=== PATIENT | male | born 1960 | race Two or more races ===

== ENCOUNTER 2018-10-22 09:18 | Day surgery (SDC) | payer OTHER ==
[2018-10-23] MEDS ORDERED: COZAAR50 MG (15:22)
== END 2018-10-22 13:10 | disposition home or self-care (01) ==
LOC: AMB-ENDOS 09:18
DX: D12.2 Benign neoplasm of ascending colon (principal)

== ENCOUNTER 2018-10-23 15:18 | Inpatient (IN) | payer OTHER ==
[~2018-10-23] VITALS: Ht 167.6 cm; Wt 70.8 kg
[2018-10-23] MEDS ORDERED: COZAAR50 MG (15:22)
[2018-10-25] MEDS ORDERED: CIPRO500 MG PO ×2 (08:35)
[2018-10-25] MEDS ORDERED: INTESTINEX680 M1 PO ×2 (08:36)
[2018-10-25] MEDS ORDERED: LEVSIN/SL0.125 MG SL ×2 (08:36)
[2018-10-25] MEDS ORDERED: FLAGYL500MG PO ×2 (08:36)
[2018-10-25] MEDS ORDERED: ULTRACET PO ×2 (08:37)
== END 2018-10-25 17:43 | disposition home or self-care (01) | DRG 392 ==
LOC: ER 15:18 → SURH 18:16
PROVIDERS: ADMIT Surgery
PROC: BW21YZZ Computerized Tomography (CT Scan) of Abdomen and Pelvis using Other Contrast (ICD-10-PCS; principal; 2018-10-23)
DX: K57.20 Diverticulitis of large intestine with perforation and abscess without bleeding (principal); R10.32 Left lower quadrant pain; D12.2 Benign neoplasm of ascending colon